=== PATIENT | female | born 1950 | race Caucasian/White ===

== ENCOUNTER → 2018-09-15 | Day surgery (SDC) | payer MEDICARE ==
[~2018-09-15] MED LIST: AMLODIPINE BESYL5 MG PO; ASPIRIN325 MG PO; CARAFATE1 GM/10 ML PO; CLONAZEPAM1 MG PO; CYMBALTA30 MG PO; DEXILANT60 MG PO; FAMOTIDINE20 MG PO; FENTANYL CITRATE/PF 100MCG/2 ML INJ ONE; FLECTOR1 EACH TP; HYDROXYCHLOROQ200 MG PO; LEVOCETIRIZINE D5 MG PO; LINZESS PO; MICARDIS40 MG PO; MIDAZOLAM HCL 2 MG/2 ML VIAL ONE; MONTELUKAST SODI4 MG PO; MSM-GLUCOSAMIN1 EACH PO; MULTIVITAMINS1 EAC7 PO; NORDITROPI5 MG/1.52 SQ; OMEGA 3 FISH O1 EACH PO; PROMETHAZINE HC25 M1 PO; PROPOFOL IV EMULSION 10 MG/ML 50 ML VIAL ONE; SAXENDA SQ; SENNA-S PO; SYNTHROID125 MCG PO; TIZANIDINE HCL4 M1 PO; TOPIRAMATE100 MG PO; VITAMIN C1000 M2 PO; [UNRECOGNIZED DRUG - MIXTURE] PO; [UNRECOGNIZED DRUG - OTHER]; [UNRECOGNIZED DRUG - OTHER]; [UNRECOGNIZED DRUG - OTHER] IV
--- OUTSIDE RECORDS SUMMARY | 2018-09-15 06:17 | XMS REPORT | Clinical Summary ---
Author Author Rory Yarsani Organization [facility] Address Unknown Phone Unavailable Care Team Providers Care Bulk Intake Worker Name Role Phone Rai Fenton MD PCP Allergies Comments Active Allergy Reactions Severity Noted Date Moxifloxacin 09/13/2018 Tape--Reaction: blisters and swelling - PAPER TAPE OK TO USE Other Anaphylaxis High 08/19/2016 Medications End Date Status Medication Sig Dispensed Refills Start Date Active aspirin 325 MG tablet Take 325 mg 0 by mouth daily. Active levothyroxine (SYNTHROID, Take 137 mcg 0 LEVOXYL) 137 mcg tablet by mouth every morning. Active dexlansoprazole Take 60 mg by 0 (DEXILANT) 60 mg capsule mouth daily. Active SOMATROPIN (NORDITROPIN Inject 2 mg 0 NORDIFLEX SUBQ) under the skin daily. Active telmisartan (MICARDIS) 80 Take 80 mg by 0 MG tablet mouth daily. Active DULoxetine (CYMBALTA) 60 Take 60 mg by 0 MG capsule mouth 2 (two) times a day. Active topiramate (TOPAMAX) 25 Take 25 mg by 0 MG tablet mouth 2 (two) times a day. Active amLODIPine (NORVASC) 5 mg Take 5 mg by 0 tablet mouth daily. Active linaclotide (LINZESS) 145 Take 145 mcg 0 mcg capsule by mouth daily. Active clonAZEPAM (KlonoPIN) 1 Take 1 mg by 0 MG tablet mouth 2 (two) times a day as needed for seizures. 2-3 times/day Active levocetirizine (XYZAL) 5 Take 5 mg by 0 MG tablet mouth every evening. Active solifenacin (VESICARE) 10 Take 10 mg by 0 MG tablet mouth daily. Active famotidine (PEPCID) 20 MG Take 20 mg by 0 tablet mouth daily. Active metoclopramide (REGLAN) Take 10 mg by 0 10 MG tablet mouth 4 (four) times a day. Active MONTELUKAST SODIUM Take 4 mg by 0 (MONTELUKAST ORAL) mouth nightly. Active UNABLE TO FIND PAIN PUMP - 0 Left abdomen 8mg continuous for Arthritis pain Active tapentadol (NUCYNTA) 75 Take 75 mg by 0 mg tablet mouth every 6 (six) hours as needed. Active tiZANidine (ZANAFLEX) 4 Take 4 mg by 0 MG tablet mouth every 8 (eight) hours as needed for muscle spasms. Active sucralfate (CARAFATE) 100 Take 1 g by 0 mg/mL suspension mouth 4 (four) times a day. Active UNABLE TO FIND every 30 0 (thirty) days. Oxygama IVIG 40gm for Hypogamaglobi nemia Active promethazine (PHENERGAN) Take 12.5 mg 0 12.5 MG tablet by mouth every 6 (six) hours as needed for nausea or vomiting. Active hydroCHLOROthiazide Take 25 mg by 0 (HYDRODIURIL) 25 MG mouth daily. tablet Active OMEGA-3S/DHA/EPA/FISH OIL Take by mouth 0 (OMEGA 3 ORAL) daily. 1/2 Active ascorbic acid, vitamin C, Take 1,000 mg 0 (vitamin C) 1000 MG by mouth tablet daily. Active GLUCOSAMINE HCL/MSM Take 500 mg 0 (GLUCOSAMINE MSM ORAL) by mouth nightly. Active multivitamin (THERAGRAN) Take 1 tablet 0 tablet by mouth nightly. Active senna (SENOKOT) 8.6 mg Take 1 tablet 0 tablet by mouth 2 (two) times a day. Active hydroxychloroquine Take by mouth 0 (PLAQUENIL) 200 mg tablet daily. Active liraglutide (SAXENDA) 3 Inject under 0 mg/0.5 mL (18 mg/3 mL) the skin. pen injector Active diclofenac (FLECTOR) 1.3 Place 1 patch 30 patch 0 09/13/201 % patch 12 hour on the skin 9 every 12 (twelve) hours. 09/13/2018 Discontinued UNABLE TO FIND Hydroxychoroq 0 uine 200mg BID 09/13/2018 Discontinued phentermine 37.5 MG Take 37.5 mg 0 capsule by mouth every morning. 09/13/2018 Discontinued diclofenac (FLECTOR) 1.3 Place 180 mg 0 % patch 12 hour on the skin as needed. Active Problems Problem Noted Date Port-A-Cath in place 04/06/2017 Last Assessment & Plan: E. Difficulty accessing port-a-cath. Plan for R port-a-cath exchange, move it superiorly. 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 Hypogammaglobulinemia 04/06/2017 Overview: Added automatically from request for surgery [id number] Encounters Care Team Description Date Type Specialty Gabino Lao III, MD Neck pain (Primary Dx); Acute thoracic back pain, unspecified back pain laterality 09/13/2018 Office Visit Orthopedic Surgery after 09/14/2017 Social History Date Tobacco Use Types Packs/Day Years Used Never Smoker Alcohol Use Drinks/Week oz/Week Comments Yes Sex Assigned at Date Recorded Not on file Industry Job Start Date Occupation Not on file Not on file Not on file Travel End Travel History Travel Start No recent travel history available. Last Filed Vital Signs Time Taken Vital Sign Reading - Blood Pressure - - Pulse - - Temperature - - Respiratory Rate - - Oxygen Saturation - - Inhaled Oxygen - Concentration 09/13/2018 3:15 PM CDT Weight 68 kg (150 lb) 09/13/2018 3:15 PM CDT Height 160 cm (5' 3") 09/13/2018 3:15 PM CDT Body Mass Index 26.57 Plan of Treatment Health Maintenance Due Date Last Done Comments BREAST CANCER SCREENING 2002 COLON CANCER SCREENING 2002 SHINGLES VACCINES (#1) 2002 65+ PNEUMOCOCCAL VACCINE 2017 (1 of 2 - PCV13) PNEUMOCOCCAL 2017 POLYSACCHARIDE VACCINE AGE 65 AND OVER INFLUENZA VACCINE 12/29/2018 Implants Device Identifier Shelf Expiration Date Model / Serial / Lot Implanted Type Area Manufactur er 12/28/2018 [id number] / / [id number] Port Injctbl Smart Port Ct W/ Dtchd Implantabl Right: Chest ANGIODYNAM Silicon Cath 7.5fr - [id number] Implanted: Qty: 1 on 08/19/2016 by [place] Te Donovan MD Accessorie s 06/30/2019 [id number] / / [id number] Port Injctbl Smart Port Ct W/ Dtchd Implantabl Right: Chest ANGIODYNAM Silicon Cath 7.5fr - [id number] [employer] Implanted: 04/15/2017 (Quantity not [place] on file) Access[employer] Procedures Comments Procedure Name Priority Date/Time Associated Diagnosis XR THORACIC SPINE 2 VW Routine 09/13/2018 Acute thoracic back pain, 3:28 PM CDT unspecified back pain laterality XR CERVICAL SPINE Routine 09/13/2018 Neck pain COMPLETE 3:28 PM CDT after 09/14/2017 Results * XR Thoracic Spine 2 Vw (09/13/2018 3:28 PM CDT) Narrative Performed At [facility] AP and lateral thoracic spine: Moderate kyphosis.Slight less than 10 degrees scoliosis most likely within normal limits.No compression fractures. Performing Organization Address [facility] Phone Number [facility] [address] [place] [address] * XR Cervical Spine Complete (09/13/2018 3:28 PM CDT) Narrative Performed At [facility] Lumbar spine series of flexion-extension: Anterior arthrodesis solid from C4 through C8 and posterior solid from C4 through C7 Performing Organization Address City/[facility] Phone Number [facility] [address] [place] [address] after 09/14/2017 Insurance Payer Benefit Subscriber ID Type Phone Address Plan / Group UHC MEDICARE UHC xxxxxxxxx O MEDICARE HMO/PPO Advance Directives Patient has advance care planning documents on file. For more information, olga e contact: [place] [facility] [address] [place] [address]
[2018-09-15 08:07] LABS: BASOPHILS # (AUTO) 0.1 (0.0-0.1); BASOPHILS % 0.9 % (0.0-1.0); EOSINOPHILS # (AUTO) 0.4 (0.0-0.4); HEMATOCRIT 40.6 % (34.2-44.1); LYMPHOCYTES # (AUTO) 1.6 (1.0-3.2); LYMPHOCYTES % 28.8 % (18.0-39.1); MEAN CORPUSCULAR HGB CONC 34.5 g/dL (31-35); MEAN CORPUSCULAR VOLUME 92.7 fL (81-99); MONOCYTES # (AUTO) 0.6 (0.2-0.8); MONOCYTES % 10.5 % (4.4-11.3); NEUTROPHILS % 52.6 % (38.7-80.0); PLATELET COUNT 241 x10e3/uL (140-360); RED BLOOD COUNT 4.38 x10e6/uL (3.6-5.1); RED CELL DISTRIBUTION WIDTH 12.1 % (11.7-14.4)
[2018-09-15 10:21] VITALS: BP 113/60
== END | disposition home or self-care (01) ==
LOC: OR 06:14
PROVIDERS: ATTEND Internal Medicine Gastroenterology
DX: K29.70 Gastritis, unspecified, without bleeding (principal); K21.9 Gastro-esophageal reflux disease without esophagitis; K20.9 Esophagitis, unspecified; K44.9 Diaphragmatic hernia without obstruction or gangrene; Z71.3 Dietary counseling and surveillance; I10 Essential (primary) hypertension; E66.3 Overweight; K62.89 Other specified diseases of anus and rectum; K63.89 Other specified diseases of intestine; K64.8 Other hemorrhoids; J45.909 Unspecified asthma, uncomplicated; I69.351 Hemiplegia and hemiparesis following cerebral infarction affecting right dominant side; M06.9 Rheumatoid arthritis, unspecified; Z88.1 Allergy status to other antibiotic agents; Z88.8 Allergy status to other drugs, medicaments and biological substances; Z91.048 Other nonmedicinal substance allergy status; Z01.810 Encounter for preprocedural cardiovascular examination; Z79.82 Long term (current) use of aspirin; Z68.26 Body mass index [BMI] 26.0-26.9, adult; Z86.2 Personal history of diseases of the blood and blood-forming organs and certain disorders involving the immune mechanism; Z80.0 Family history of malignant neoplasm of digestive organs
CPT/HCPCS: 36415; 43239; 45380; 85025; 93005; J2250; J2704

== ENCOUNTER 2019-11-07 20:54 | Emergency (ER) | payer MEDICARE ==
[~2019-11-07] VITALS: Ht 160 cm; Wt 77.1 kg
[~2019-11-07 20:54] MED LIST changes: -FENTANYL CITRATE/PF 100MCG/2 ML INJ ONE; -MIDAZOLAM HCL 2 MG/2 ML VIAL ONE; -PROPOFOL IV EMULSION 10 MG/ML 50 ML VIAL ONE
--- OUTSIDE RECORDS SUMMARY | 2019-11-07 20:58 | XMS REPORT | Continuity of Care Document ---
Author Author [facility] t Organization [facility] Address [address] [place] [address] Phone Unavailable Care Team Providers Care Furnace Erector Name Role Phone Jossy PUGA, Fabrice Atwood PCP Gualberto PUGA, Lore Attphys [phone] Payers Payer Name Policy Type Policy Number Effective Date Expiration Date S ource UHC MEDICAREUHC GROUP MEDICARE [id number] xxxxxxxxx 2019 00:00:00 Rory Godinez Problems Condition Name Condition Details Condition Category Status Onset Date Resolution Date Last Treatment Date Treating Clinician Comments Source Port-A-Cath in place Port-A-Cath in place Disease Active 00:00:00 Last Assessment & Plan: E.Di fficulty accessing port-a-cath.Plan for R port-a-cath exchange, move it superiorly. Rory Godinez Rheumatoid arthritis Rheumatoid arthritis Disease Active 00:00:00 Rory Godinez Asthma Asthma Disease Active 2017-04-06 00:00:00 Rory Godinez GERD (gastroesophageal reflux disease) GERD (gastroesophagea l reflux disease) Disease Active 2017-04-06 00:00:00 Rory Godinez Essential hypertension Essential hypertension Disease Active 2017-04-06 00:00:[address] SVT (supraventricular tachycardia) SVT (supraventricular tachyca rdia) Disease Active 2017-04-06 00:00:00 [place] Lonnie's thyroiditis Lonnie's thyroiditis Disease Active 2017-04-06 00:00:00 Rory bates Sjogren's disease Sjogren's disease Disease Active 2017-04-06 00:00:00 Rory Godinez Fibromyalgia Fibromyalgia Disease Active 2017-04-06 00:00:00 Rory Godinez Osteopenia Osteopenia Disease Active 2017-04-06 00:00:00 Rory Godinez Spondylosis Spondylosis Disease Active 2017-04-06 00:00:00 Rory Godinez Acquired cervical spine ankylosis Acquired cervical spine ankylo sis Disease Active 2017-04-06 00:00:00 Jose Godinez Hypogammaglobulinemia Hypogammaglobulinemia Disease Active 201 12-08-06 00:00:00 Overview: Added automatically fr om request for surgery [id number] Rory Godinez Allergies, Adverse Reactions, Alerts Allergy Name Allergy Type Status Severity Reaction(s) Onset Date Inacti ve Date Treating Clinician Comments Source Moxifloxacin Propensity to adverse reactions to drug Active 2018-09-13 00:00:00 Rory owens Other Propensity to adverse reactions Active Anaphyla xis 2016-08-19 00:00:00 Tape--Reaction: blisters and swelling - PAPER TAPE OK TO USE Rory Godinez Social History Social Habit Start Date Stop Date Quantity Comments Source Sex Assigned At Idania tejada [facility]astrian Alcohol intake 2018-09-13 00:00:00 2018-09-13 00:00:00 Current drinker of alcohol (finding) Rory Godinez Smoking Status Start Date Stop Date Source Never smoker Rory owens Medications Ordered Medication Name Filled Medication Name Start Date Stop Da te Current Medication? Ordering Clinician Indication Dosage Frequency Signature (SIG) Comments Components Source aspirin 325 MG tablet 2018-09-13 15:27:46 Yes 325mg QD Take 325 mg by mouth daily. Rory Godinez levothyroxine (SYNTHROID, LEVOXYL) 137 mcg tablet 2018-09-13 15:27:46 Yes 137ug QD Take 137 mcg by mouth every morning. Rory Godinez dexlansoprazole (DEXILANT) 60 mg capsule 2018-09-13 15:27:46 Yes 60mg QD Take 60 mg by mouth daily. Jose Godinez SOMATROPIN (NORDITROPIN NORDIFLEX SUBQ) 2018-09-13 15:27:46 Yes 2mg QD Inject 2 mg under the skin daily. Batsheva Godinez telmisartan (MICARDIS) 80 MG tablet 2018-09-13 15:27:46 Yes 80mg QD Take 80 mg by mouth daily. Rory Godinez DULoxetine (CYMBALTA) 60 MG capsule 2018-09-13 15:27:46 Yes 60mg Q.5D Take 60 mg by mouth 2 (two) times a day. Rory Godinez topiramate (TOPAMAX) 25 MG tablet 2018-09-13 15:27:46 Yes 25mg Q.5D Take 25 mg by mouth 2 (two) times a day. Rogerio Godinez amLODIPine (NORVASC) 5 mg tablet 2018-09-13 15:27:46 Yes 5mg QD Take 5 mg by mouth daily. Rory Godinez linaclotide (LINZESS) 145 mcg capsule 2018-09-13 15:27:46 Y es 145ug QD Take 145 mcg by mouth daily. Rory valadez clonAZEPAM (KlonoPIN) 1 MG tablet 2018-09-13 15:27:46 Yes 1mg Q.5D Take 1 mg by mouth 2 (two) times a day as needed for seizures. 2-3 times/day Rory Godinez levocetirizine (XYZAL) 5 MG tablet 2018-09-13 15:27:46 Yes 5mg QD Take 5 mg by mouth every evening. Rory crawley solifenacin (VESICARE) 10 MG tablet 2018-09-13 15:27:46 Yes 10mg QD Take 10 mg by mouth daily. Rory Godinez famotidine (PEPCID) 20 MG tablet 2018-09-13 15:27:46 Yes 20mg QD Take 20 mg by mouth daily. Rory Godinez metoclopramide (REGLAN) 10 MG tablet 2018-09-13 15:27:46 Ye s 10mg Q.25D Take 10 mg by mouth 4 (four) times a day. Rory Godinze MONTELUKAST SODIUM (MONTELUKAST ORAL) 2018-09-13 15:27:46 Y es 4mg QD Take 4 mg by mouth nightly. Rory Reza odxander tapentadol (NUCYNTA) 75 mg tablet 2018-09-13 15:27:46 Yes 75mg Q6H Take 75 mg by mouth every 6 (six) hours as needed. Rory Godinez tiZANidine (ZANAFLEX) 4 MG tablet 2018-09-13 15:27:46 Yes 4mg Q8H Take 4 mg by mouth every 8 (eight) hours as needed for muscle spasms. Rory Godinez sucralfate (CARAFATE) 100 mg/mL suspension 2018-09-13 15:27:46 Yes 1g Q.25D Take 1 g by mouth 4 (four) times a day. Rory Godinez promethazine (PHENERGAN) 12.5 MG tablet 2018-09-13 15:27:46 Yes 12.5mg Q6H Take 12.5 mg by mouth every 6 (six) hours as needed fo r nausea or vomiting. Rory Godinez hydroCHLOROthiazide (HYDRODIURIL) 25 MG tablet 2018-09-13 15:27: 46 Yes 25mg QD Take 25 mg by mouth daily. Yvonne Godinez GLUCOSAMINE HCL/MSM (GLUCOSAMINE MSM ORAL) 2018-09-13 15:27:46 Yes 500mg QD Take 500 mg by mouth nightly. Rory Godinez senna (SENOKOT) 8.6 mg tablet 2018-09-13 15:27:46 Yes 1{tbl} Q.5D Take 1 tablet by mouth 2 (two) times a day. Idania Godinez hydroxychloroquine (PLAQUENIL) 200 mg tablet 2018-09-13 15:27:46 Yes QD Take by mouth daily. Rory valadez liraglutide (SAXENDA) 3 mg/0.5 mL (18 mg/3 mL) pen injector 2018-09-13 15:27:46 Yes Inject under the skin. Rory Godinez diclofenac (FLECTOR) 1.3 % patch 12 hour 2018-09-13 00:00:00 Yes 1{patch} Q12H Place 1 patch on the skin every 12 (twelve) hours. Rory Godinez UNABLE TO FIND 2017-04-17 03:04:13 Yes PAIN PUMP - Left abdomen 8mg continuous for Arthritis pain Rory marie UNABLE TO FIND 2017-04-17 03:04:13 Yes Q30D every 30 (thirty) days. Oxygama IVIG 40gm for Hypogamaglobinemia Rory Godinez OMEGA-3S/DHA/EPA/FISH OIL (OMEGA 3 ORAL) 2017-04-17 03:04:13 Yes QD Take by mouth daily. 1/2 Rory bates ascorbic acid, vitamin C, (vitamin C) 1000 MG tablet 2 03:04:13 Yes 1000mg QD Take 1,000 mg by mouth daily. Rory Godinez multivitamin (THERAGRAN) tablet 2017-04-17 03:04:13 Yes 1{tbl} QD Take 1 tablet by mouth nightly. Rory Lee st Procedures Procedure Date / Time Performed Performing Clinician Freddie causey [place] MODIFIED BARIUM SWALLOW 2018-12-08 13:45:41 System, Provider Not In Rory Godinez Plan of Care Planned Activity Planned Date Details Comments Source Future Scheduled Test 2019-12-30 00:00:00 INFLUENZA VACCINE [code = INFLUENZA VACCINE] Rory Godinez Future Scheduled Test 2017 00:00:00 65+ PNEUMOCOCCAL V ACCINE (1 of 2 - PCV13) [code = 65+ PNEUMOCOCCAL VACCINE (1 of 2 - PCV13)] Rory Godinez Future Scheduled Test 2002 00:00:00 BREAST CANCER SCRE ENING [code = BREAST CANCER SCREENING] Rory Godinez Future Scheduled Test 2002 00:00:00 COLONOSCOPY SCREEN ING [code = COLONOSCOPY SCREENING] Rory Godinez Future Scheduled Test 2002 00:00:00 SHINGLES VACCINES (#1) [code = SHINGLES VACCINES (#1)] Rory Godinez Encounters Start Date/Time End Date/Time Encounter Type Admission Type [facility] Care Department Encounter ID Source 2019-03-01 12:54:00 2019-03-01 12:54:00 Outpatient [facility] [id number] [facility] Results Test Description Test Time Test Comments Results Result Comments Source FL Modified Barium Swallow 2018-12-08 14:28:23 H m Interface, Radiology Results 12/08/2018 2:31 PM CDTEXAMINATION: [place] MODIFIED BARIUM SWALLOWCLINICAL HISTORY: K21.9 Gastro-esophageal reflux disease without esophagitis, Gastroesophageal reflux disease without esophagitisCOMPARISON: None.Fluoroscopy time: 0.8 minutes. 0 fluoroscopic exposures.FINDINGS: The patient swallowed varying consistencies of barium under direct lateral fluorosc opic evaluation. The study was performed in conjunction with speech pathology.IMPRESSION: There is flash penetration with thin liquids but no sona aspiration.Please refer to Speech Pathology report for further details.[facility]-[id number] Rory Godinez
--- OUTSIDE RECORDS SUMMARY | 2019-11-07 20:58 | XMS REPORT | Clinical Summary ---
Author Author [facility] Organization [facility] Address Unknown Phone Unavailable Care Team Providers Care Airline Stewardess Name Role Phone Rai Fenton MD PCP [...] 1.3 Place 1 patch 30 patch 0 //201 % patch 12 hour on the skin 9 every 12 (twelve) hours. Active Problems Problem Noted Date Port-A-Cath in place 04/06/2017 Last Assessment & Plan: E. Difficulty accessing port-a-cath. Plan for R port-a-cath exchange, move i t superiorly. 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 Hypogammaglobulinemia 04/06/2017 Overview: Added automatically from request for jennifer trejo [id number] Encounters Care Team Description Date Type Specialty 09/26/2019 Travel Lore Burciaga MD Gastroesophageal reflux disease without esophagitis 12/08/2018 Hospital Radiology Encounter Lore Burciaga MD Gastroesophageal reflux disease without esophagitis (Primary Dx) 11/10/2018 Transcribe Access Orders after 11/06/2018 Social History Date Tobacco Use Types Packs/Day Years Used Never Smoker Drinks/Week oz/Week Comments Alcohol Use Yes Sex Assigned at Date Recorded Not on file Industry Job Start Date Occupation Not on file Not on file Not on file Travel End Travel History Travel Start No recent travel history available. Last Filed Vital Signs Not on file Plan of Treatment Health Maintenance Due Date Last Done Comments BREAST CANCER SCREENING 2002 COLONOSCOPY SCREENING 2002 SHINGLES VACCINES (#1) 2002 65+ PNEUMOCOCCAL VACCINE 2017 (1 of 2 - PCV13) INFLUENZA VACCINE 12/30/2019 Implants Device Identifier Shelf Expiration Date Model / Serial / L ot Implanted Type Area Manufactur er 12/28/2018 [id number] / / [id number] Port Injctbl Smart Port Ct W/ Dtchd Implantabl Right: Josefina st [employer]GIODYNAM Silicon Cath 7.5fr - [id number] [employer] Implanted: Qty: 1 on 08/19/2016 by Luis E or Te Donovan MD at [facility] s 06/30/2019 [id number] / / [id number] Port Injctbl Smart Port Ct W/ Dtchd Implantabl Right: Josefina st ANGIODYNAM Silicon Cath 7.5fr - [id number] [employer] Implanted: 04/15/2017 at [facility]Quantity not on file[facility] Procedures Comments Procedure Name Priority Date/Time Associated Diag nosis FL MODIFIED BARIUM Routine 12/08/2018 Gastroesoph ageal reflux SWALLOW 1:45 PM CDT disease without esophagitis after 11/06/2018 Results * FL Modified Barium Swallow (12/08/2018 1:45 PM CDT) Specimen Narrative Performed At EXAMINATION: [place] MODIFIED BARIUM SWALLOW [facility] CLINICAL HISTORY: K21.9 Gastro-esopha geal reflux disease without esophagitis, Gastroesophageal reflux disease without esophagitis COMPARISON: None. Fluoroscopy time: 0.8 minutes. 0 fluoro scopic exposures. FINDINGS: The patient swallowed varying consisten cies of barium under direct lateral fluoroscopic evaluation. The study was performed in conjunction with speech pathology. IMPRESSION: There is flash penetration with thin li quids but no sona aspiration. Please refer to Speech Pathology report for further details. [facility]-[id number] Procedure Note Hm Interface, Radiology Results Incoming - 12/08/2018 2:31 PM CDT EXAMINATION: FL MODIFIED BARIUM SWALLOW CLINICAL HISTORY: K21.9 Gastro-esophageal reflux disease without esophagitis, Gastroesophageal reflux disease without esophagitis COMPARISON: None. Fluoroscopy time: 0.8 minutes. 0 fluoroscopic exposures. FINDINGS: The patient swallowed varying consistencies of barium under direct lateral fluoroscopic evaluation. The study was performed in conjunction with speech pathology. IMPRESSION: There is flash penetration with thin liquids but no sona aspiration. Please refer to Speech Pathology report for further details. 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
[2019-11-07] MEDS ORDERED: MORPHINE SULFATE INJ 4 MG/ML INJ 1ML IM STA (21:51)
--- NOTE | 2019-11-07 21:53 | Emergency Department Note ---
History of Present Illnes History of Present Illness Chief Complaint: Extremity Trauma/Pain History of Present Illness This is a 69 year old female with sudden onset of left leg pain 4 hours ago at 1800. S/P 10 days L saphenous vein sx . Historian: Patient Arrival Mode: Car Onset (how long ago): hour(s) Location: Left calf Quality: achy Radiation: Reports non-radiation, Reports extremity Severity: moderate Onset quality: sudden Duration (how long): hour(s) (4) Timing of current episode: constant Progression: unchanged Chronicity: new Context: Reports recent surgery, Reports recent immobilization Relieving factors: rest Exacerbating factors: movement Associated symptoms: Reports denies other symptoms Treatments prior to arrival: none Past Medical/Family History Physician Review I have reviewed the patient's past medical and family history. Any updates have been documented here. Review of Systems Review of Systems Review of other systems All other systems reviewed and negative. Physical Exam Related Data Allergies: Coded Allergies: levofloxacin (Verified Adverse Reaction, Unknown, DEPRESSION, 09/14/18) moxifloxacin (Verified Adverse Reaction, Unknown, CAUSES DEPRESSION AND ANGER, 09/14/18) prednisone (Verified Adverse Reaction, Unknown, STEROID TYPE RAGE, 09/14/18) venlafaxine (Verified Adverse Reaction, Unknown, MENTAL ALTERATIONS, 09/14/18) Triage Vital Signs Vital Signs Date Time Temp Pulse Resp B/P (MAP) Pulse Ox O2 Delivery O2 Flow Rate FiO2 11/07/19 21:48 97.3 86 20 158/75 99 Vital signs reviewed: Yes Physical Exam CONSTITUTIONAL Constitutional: Reports well-developed, Reports well-nourished HENT HENT: Reports normocephalic, Reports atraumatic, Reports oropharynx clear/moist, Reports nose normal HENT L/R: Reports left ext ear normal, Reports right ext ear normal EYES Eyes: Reports PERRL, Reports conjunctivae normal NECK Neck: Reports ROM normal PULMONARY Pulmonary: Reports effort normal, Reports breath sounds normal CARDIOVASCULAR Cardiovascular: Reports regular rhythm, Reports heart sounds normal, Reports capillary refill normal, Reports normal rate GASTROINTESTINAL Abdominal: Reports soft, Reports nontender, Reports bowel sounds normal GENITOURINARY Genitourinary: Reports exam deferred SKIN Skin: Reports other (multiple varicosities b/l LE) MUSCULOSKELETAL Musculoskeletal: Reports ROM normal, Reports tenderness (Left calf) NEUROLOGICAL Neurological: Reports alert, Reports oriented x 3, Reports no gross motor or sensory deficits PSYCHOLOGICAL Psychological: Reports mood/affect normal, Reports judgement normal Results Imaging Imaging results reviewed: Yes Impressions Venous Duplex L leg : negative for DVt Assessment & Plan Medical Decision Making MDM 69 YOF with sudden onset of left leg pain s/p saphenous vein surgery. Venous Duplex negative for DVT. Plan to discharge to home with rx Tylenol #3 Assessment & Plan Final Impression: (1) Left leg pain Depart Disposition: HOME, SELF-detention Meds Reported Medications [Pump Fentanyl] No Conflict Check, 8 MG BID 09/15/18 [Pump Morphine] No Conflict Check 09/15/18 [Senna-S] No Conflict Check, PO BID 09/14/18 Multivitamin (MULTIVITAMINS) 1 Each Capsule, 1 CAP PO DAILY 09/14/18 Glucosamine Sulfate/Msm (MSM-GLUCOSAMINE 250-250 MG CAP) 1 Each Capsule, 500 MG PO HS 09/14/18 Ascorbic Acid (VITAMIN C) 1,000 Mg Tablet.er, 65779 MG PO DAILY 09/14/18 [place]-3 Fatty Acids/Fish Oil (OMEGA 3 FISH OIL SOFTGEL) 1 Each Capsule.dr, 1 TAB PO DAILY 09/14/18 Promethazine Hcl (PROMETHAZINE HCL) 25 Mg Tablet, 12.5 MG PO PRN PRN for NAUSEA, TAB 09/14/18 [Oxygama Ivig] No Conflict Check, 40 G IV QMONTH 09/14/18 Sucralfate (CARAFATE) 1 Gm/10 Ml Oral.susp, 1 GM PO PRN, ML 09/14/18 Tizanidine Hcl (TIZANIDINE HCL) 4 Mg Capsule, 4 MG PO BID PRN for MUSCLE SPASMS 09/14/18 Diclofenac Epolamine (FLECTOR) 1 Each Adh..patch, 1 PATCH TP BID 09/14/18 [Nucymitia/Apap] No Conflict Check, 75 MG PO PRN 09/14/18 Montelukast Sodium (MONTELUKAST SODIUM) 4 Mg Tab.chew, 4 MG PO HS 09/14/18 [Saxenda] No Conflict Check, 3 MG SQ DAILY 09/14/18 Somatropin (NORDITROPIN FLEXPRO) 5 Mg/1.5 Ml Pen.injctr, 0.8 MG SQ DAILY 09/14/18 Famotidine (FAMOTIDINE) 20 Mg Tab, 20 MG PO DAILY, #30 TAB 09/14/18 Levocetirizine Dihydrochloride (LEVOCETIRIZINE DIHYDROCHLORIDE) 5 Mg Tablet, 5 MG PO DAILY 09/14/18 Clonazepam (CLONAZEPAM) 1 Mg Tablet, 1 MG PO HS, TAB 09/14/18 [Linzess] No Conflict Check, 145 MG PO DAILY 09/14/18 Amlodipine Besylate (AMLODIPINE BESYLATE) 5 Mg Tablet, 5 MG PO DAILY, #30 TAB 09/14/18 Topiramate (TOPIRAMATE) 100 Mg Tablet, 100 MG PO DAILY, #30 TAB 09/14/18 Hydroxychloroquine Sulfate (HYDROXYCHLOROQUINE SULFATE) 200 Mg Tablet, 200 MG PO BID 09/14/18 Duloxetine Hcl (CYMBALTA) 30 Mg Capsule.dr, 60 MG PO DAILY, #30 CAP 09/14/18 Telmisartan (MICARDIS) 40 Mg Tab, 80 MG PO DAILY, #30 TAB 09/14/18 Dexlansoprazole (DEXILANT) 60 Mg Cap., 60 MG PO DAILY THERAPEUTIC INTERCHANGE WITH PROTONIX PER [facility] 09/14/18 Levothyroxine Sodium (SYNTHROID) 125 Mcg Tab, 137 MCG PO DAILY, #30 TAB 09/14/18 Aspirin (ASPIRIN) 325 Mg Tablet, 325 MG PO DAILY, #30 TAB 09/14/18 WILLOW BURNHAM DO Nov 07, 2019 21:53
--- NOTE | 2019-11-07 21:56 | NUR ---
VENOUS DOPPLER TECH CALLED
--- NOTE | 2019-11-07 22:50 | NUR ---
US AT BEDSIDE
== END 2019-11-07 23:47 | disposition home or self-care (01) ==
LOC: ER 20:54
DX: M79.605 Pain in left leg (principal); I10 Essential (primary) hypertension; E78.5 Hyperlipidemia, unspecified; E03.9 Hypothyroidism, unspecified; M06.9 Rheumatoid arthritis, unspecified; K21.9 Gastro-esophageal reflux disease without esophagitis; Z86.73 Personal history of transient ischemic attack (TIA), and cerebral infarction without residual deficits
CPT/HCPCS: 93926; 93971; 99283; J2270